=== PATIENT | male | born 1950 | race Caucasian/White ===

== ENCOUNTER 2020-02-12 12:45 | Inpatient (IN) | payer OTHER ==
[2020-02-12] VITALS (10 sets, daily range): BP systolic 132–175; BP diastolic 77–96
[~2020-02-12] VITALS: Ht 185.4 cm; Wt 112.9 kg
[2020-02-12 13:35] LABS: HEMATOCRIT 43.4 % (42.0-52.0); HEMOGLOBIN 14.8 gm/dL (14.0-18.0); MCH 31.2 pg (26.0-34.0); MCHC 34.2 g/dL (28.0-37.0); MCV 91.3 fL (80.0-100.0); RBC 4.76 mil/uL (4.50-6.00); RDW 14.3 % (10.5-14.5); WBC 10.7 thou/uL (4.0-11.0)
[2020-02-12 13:45] LABS: ANION GAP 10 mmol/L (7-16); BUN 20 mg/dL (7-18); CALCIUM 8.7 mg/dL (8.5-10.1); CHLORIDE 105 mmol/L (98-107); CO2 24 mmol/L (21-32); CREATININE 1.1 mg/dL (0.7-1.3); GLUCOSE 148 mg/dL (74-106); POTASSIUM 4.1 mmol/L (3.5-5.1); SODIUM 139 mmol/L (136-145)
[2020-02-12 13:54] LABS: TROPONIN-I <0.06 ng/mL (<0.06)
[2020-02-12 18:26] LABS: INR 1.1; PROTIME 10.8 Seconds (9.3-11.4)
[2020-02-13 06:18] VITALS: BP 163/101
[2020-02-13 06:26] LABS: HEMATOCRIT 42.4 % (42.0-52.0); HEMOGLOBIN 14.6 gm/dL (14.0-18.0); MCH 31.2 pg (26.0-34.0); MCHC 34.4 g/dL (28.0-37.0); MCV 90.6 fL (80.0-100.0); RBC 4.68 mil/uL (4.50-6.00); RDW 14.4 % (10.5-14.5); WBC 8.8 thou/uL (4.0-11.0)
[2020-02-13 06:46] LABS: ANION GAP 9 mmol/L (7-16); BUN 16 mg/dL (7-18); CALCIUM 8.5 mg/dL (8.5-10.1); CHLORIDE 106 mmol/L (98-107); CO2 25 mmol/L (21-32); CREATININE 0.9 mg/dL (0.7-1.3); GLUCOSE 117 mg/dL (74-106); POTASSIUM 4.2 mmol/L (3.5-5.1); SODIUM 140 mmol/L (136-145)
[2020-02-13 06:47] LABS: SERUM ASSESSMENT Clear
[2020-02-13 06:57] LABS: ALBUMIN 3.8 g/dL (3.4-5.0); CHOLESTEROL 130 mg/dL (<200); HDL CHOLESTEROL 21 mg/dL (>40); LDL CHOLESTEROL 41 mg/dL (<100); SGOT 47 U/L (15-37); SGPT 55 U/L (30-65); TC:HDL 6.2 Ratio (Not establshd); TOTAL BILIRUBIN 0.5 mg/dL (0.2-1.0); TOTAL PROTEIN 6.9 g/dL (6.4-8.2); TRIGLYCERIDE 342 mg/dL (<150); VLDL 68 mg/dL (<40)
[2020-02-13] MEDS ORDERED: CLOPIDOGREL75 MG PO (07:36)
[2020-02-13] MEDS ORDERED: METOPROLOL SUCC25 M1 PO (07:37)
[2020-02-13] MEDS ORDERED: ASA81BEC PO (07:38)
[2020-02-13] MEDS ORDERED: PANTOPRAZOLE SO40 M1 PO (07:39)
[2020-02-13] MEDS ORDERED: LORATIDINE 10 M10 M1 PO (07:39)
[2020-02-13] MEDS ORDERED: VITAMIN D-40010 MCG PO (07:42)
[2020-02-13] MEDS ORDERED: MEN'S MULTIVIT1 EACH PO (07:43)
[2020-02-13] MEDS ORDERED: COLACE100 MG PO (07:44)
[2020-02-13] MEDS ORDERED: METAMUCIL660 GM PO (07:44)
[2020-02-13] MEDS ORDERED: FLONASE 0.05%50 MCG NARES (07:45)
[2020-02-13] MEDS ORDERED: DOXAZOSIN MESYLA8 MG PO (07:46)
[2020-02-13] MEDS ORDERED: SIMVASTATIN80 MG PO (07:46)
[2020-02-13] MEDS ORDERED: NAPROSYN500 MG PO (07:47)
[2020-02-13] MEDS ORDERED: NEURONTIN 300M300 M2 PO (07:48)
[2020-02-13] MEDS ORDERED: TRAMADOL 50 MG50 MG PO (07:48)
[2020-02-13 07:57] VITALS: BP 155/100
--- NOTE | 2020-02-13 08:07 | NUR ---
ASSESSMENTS CHARTED, MEDS CHARTED GIVEN. RESTED IN BED DURING SHIFT, DID NOT SLEEP WELL. 1ST DEGREE AND BBB ON TELEMETRY. UP WITH CANE AND ASSIST TO BATHROOM. WENT TO [employer] DURING DAY SHIFT, RIGHT GROIN SITE IS SOFT DRY AND INTACT. RECEIVED TWO STENTS. FALL PRECAUTIONS IN PLACE DURING SHIFT. DENIED PAIN.
--- NOTE | 2020-02-13 11:28 | NUR ---
PT ASSESSED, POC REVIWED AND PT VERBALIZED UNDERSTANDING, UP AD TRACY, ULTRAM GIVEN FOR CHRONIC LOWER BACK/HIP PAIN, VSS, WILL MONITOR
[2020-02-13 11:47] VITALS: BP 151/71
--- NOTE | 2020-02-13 13:39 | NUR ---
CONSULT [id number] WAS COMPLETED BY THIS DELINQUENT ACCOUNT CLERK. PATIENT WAS VISIITED REGARDING AN ADVANCED DIRECIVE. HE DID NOT NEED ONE AT THE TIME BUT HE TOOK THE MATERIALS.
[2020-02-13 15:15] VITALS: BP 155/93
[2020-02-13 21:56] VITALS: BP 134/68
--- NOTE | 2020-02-14 07:37 | NUR ---
PT AMBULATING TO BATHROOM INDEPENDENTLY AND IS TOLERATING WELL. DENIES PAIN. RESTING COMFORTABLY. NO NEEDS VOICED. CALL LIGHT WITHIN REACH. FREQUENT OBSERVATION.
[2020-02-14 07:48] VITALS: BP 147/91
--- NOTE | 2020-02-14 09:48 | 2DMMODE ---
[facility] [place] [address] 2 D/M-MODE ECHOCARDIOGRAM Name: CHOCO STONE Room #: 219-P ADM IN M.R.#: [id number] Admission: 02/12/20 Attend Phys: Jose Lake MD, Discharge: Date of : 52 Report #: [id number] THIS REPORT FOR: cc: FAM - Family physician unknown FAM - Family physician unknown Jose Lake MD [facility] ~ APPROVED REPORT Study performed: 02/13/2020 10:15:51 EXAM: Comprehensive 2D, Doppler, and color-flow Echocardiogram Patient Location: In-Patient Room #: 219 Status: routine BSA: 2.31 HR: 64 bpm BP: 130/74 mmHg Rhythm: NSR Other Information Study Quality: Technically Difficult Risk Factors: Cardiac Risk Factors: HTN Echo Enhancing Agent Indication: Endocardial border delineation Agent(s) / Amount(s) Used: Optison 2 cc 2D Dimensions RVDd: 43.11 mm IVSd: 15.39 (7-11mm) LVOT Diam: 24.78 (18-24mm) LVDd: 48.12 mm PWd: 17.01 (7-11mm) Ascending Ao: 37.21 (22-36mm) Left Atrium: 38.98 (27-40mm) Aortic Root: 29.81 mm Volumes Left Atrial Volume (Systole) Single Plane 4CH: 32.65 mL Single Plane 2CH: 32.42 mL Aortic Valve AoV Peak Sj.: 1.18 m/s AO Peak Gr.: 5.57 mmHg [facility] [address] [place] [address] 2 D/M-MODE ECHOCARDIOGRAM Name: CHOCO STONE [place] Room #: 219-P [facility] IN M.R.#: [id number] Admission: 02/12/20 Attend Phys: Jose Lake, Discharge: Date of : 52 Report #: [id number] Mean Gr.: 2.57 mmHg AO V2 Mean: 0.74 m/s AO V2 VTI: 23.55 cm Mitral Valve E/A Ratio: 1.0 MV Decel. Time: 242.33 ms MV E Max Sj.: 0.65 m/s MV A Sj.: 0.68 m/s MV PHT: 70.28 ms Left Ventricle The left ventricle is normal size. There is normal LV segmental wall motion. Mild concentric left ventricular hypertrophy. The left ventricular systolic function is normal. The left ventricular ejection fraction is within the normal range. LVEF is 50-55% subtle ant apical distal septal hypokinesis Right Ventricle The right ventricle is normal size. There is normal right ventricular wall thickness. The right ventricular systolic function is normal. Atria The left atrium size is normal. The right atrium size is normal. Aortic Valve The aortic valve is normal in structure. No aortic regurgitation is present. There is no aortic valvular stenosis. Mitral Valve The mitral valve is normal in structure. There is no mitral valve regurgitation noted. Tricuspid Valve The tricuspid valve is normal in structure. There is no tricuspid valve regurgitation noted. Pulmonic Valve The pulmonary valve is normal in structure. There is no pulmonic valvular regurgitation. Great Vessels The aortic root is normal in size. IVC is normal in size and collapses >50% with inspiration. [facility] [address] [place] [address] 2 D/M-MODE ECHOCARDIOGRAM Name: CHOCO STONE [place] Room #: 219-P [facility] IN M.R.#: [id number] Admission: 02/12/20 Attend Phys: Jose Lake, Discharge: Date of : 52 Report #: [id number] Pericardium There is no pericardial effusion. <Conclusion> The left ventricle is normal size. Mild concentric left ventricular hypertrophy. LVEF is 50-55% subtle ant apical distal septal hypokinesis The right ventricle is normal size. The aortic valve is normal in structure. There is no mitral valve regurgitation noted. There is no tricuspid valve regurgitation noted. The aortic root is normal in size. There is no pericardial effusion. <ELECTRONICALLY SIGNED> By: Jose Lake MD, [facility] 02/14/20 0947 [id number] Jose Lake MD, FACC /INF
[2020-02-14] MEDS ORDERED: LIPITOR40 MG PO (10:46)
[2020-02-14] MEDS ORDERED: METOPROLOL SUCC25 M1 PO (10:50)
[2020-02-14] MEDS ORDERED: BENICAR40 MG PO (10:50)
[2020-02-14] MEDS ORDERED: EFFIENT10 MG PO (10:50)
[2020-02-14] MEDS ORDERED: ASPIRIN325 PO (11:00)
[2020-02-14 11:01] VITALS: BP 147/91
--- NOTE | 2020-02-14 12:24 | NUR ---
ASSESSMENT CHARTED. PT ALERT AND ORIENTED. VSS. DENIED HAVING PAIN OR DISCOMFORT. SEEN BY DR. RODRIGUEZ. ORDERS GIVEN TO DISCHARGE PT TO HOME. DISCHARGE INSTRUCTIONS GIVEN TO PT. PT VERBERLISED UNDERSTANDING. PT LEFT THE FACILITY ACCOMPANIED BY THE .
--- NOTE | 2020-02-15 07:46 | EKG ---
[facility] [place] [address] ELECTROCARDIOGRAM REPORT Name: CHOCO STONE Room #: 219-P DIS IN M.R.#: [id number] Admission: 02/12/20 Attend Phys: Jose Lake MD, Discharge: 02/14/20 Date of : 52 Report #: [id number] THIS REPORT FOR: cc: FAM - Family physician unknown FAM - Family physician unknown Jah Cardoso MD [facility] THIS REPORT FOR: //name// [facility] Test Date: 2020-02-13 Test Time: 07:40:31 Pat Name: CHOCO STONE Department: Room: 219 P Gender: M Oim Architect: Vel SEVILLA : 1950 Requested By: Jose Lake Order Number: [id number] MD: Jah Cardoso Measurements Intervals Gorman Rate: 59 P: 39 MO: 222 QRS: -38 QRSD: 109 T: 8 QT: 432 QTc: 428 Interpretive Statements Sinus rhythm Nonspecific T wave abnormality No previous ECG available for comparison Electronically Signed On 02-15-2020 7:46:30 CDT by Jah Cardoso [email or web address] <ELECTRONICALLY SIGNED> By: Jah Cardoso MD, [facility] 02/15/20 0746 9 Jah Cardoso MD, [facility] /EPI
--- NOTE | 2020-02-17 15:02 | D ---
[facility] [place] [address] DISCHARGE SUMMARY Name: CHOCO STONE Room #: 219-P [facility] IN M.R.#: [id number] Admission: 02/12/20 Attend Phys: Jose Lake MD, Discharge: 02/14/20 Date of : 52 Report #: [id number] THIS REPORT FOR: cc: KIKI - Family physician unknown KIKI - Family physician unknown Jose Lake MD [facility] THIS REPORT FOR: //name// CC: KIKI unknown Jose Lake [facility] COURSE: The patient is a 69-year-old male who was life-flighted here from [place], [place] having onset of acute chest pain and pressure, consistent with his prior infarct pain. He was taken emergently to the catheterization lab, which revealed a totaled LAD proximal to a previously placed stent and that stent had been placed in 2006. I was able to successfully dilate and stent this with some telescoping of the new stent into the prior stent. This was a 3.0 x 12 mm Alden Resolute stent, post-dilated 3.2 mm. JULIANN grade 3 flow. I also successfully dilated and stented the diagonal branch with a 2.25 x 18. This was a subtotal diagonal with a moderate amount of distribution. There is a high-grade distal circumflex, but there is minimal distribution to that. We will treat that medically. He had some stunning of the anterior wall, but on echo this morning or echo from yesterday has improvement in the anterior septal wall and apex, EF in the 50% range. He is up and ambulating and feels well. No recurrent chest pain or pressure. We will discharge on olmesartan 40 mg, aspirin, prasugrel 10 mg a day, so dual antiplatelet therapy. We will back down to a baby aspirin after a month. Metoprolol 25, atorvastatin 40. No lifting for 48 hours. No lying in tub, Jacuzzi or black for a week. Low-fat, low-sodium, low-cholesterol diet. No MRI or dental work for 3 months. DISCHARGE DIAGNOSES: 1. Acute anterior wall myocardial infarction with successful percutaneous transluminal coronary angioplasty stent of an occluded proximal left anterior descending. 2. Also, successful stent of a high grade diagonal branch. 3. Mild ischemic cardiomyopathy with improvement in the anterior apex. EF near normal. 4. Hypertension. 5. Hypercholesterolemia. 6. History of hypertriglyceridemia. Followup will be arranged 1 month in our office. We would recommend outpatient cardiac rehabilitation. We will arrange. <ELECTRONICALLY SIGNED> By: Jose Lake MD, FACC 02/17/20 1502 1041 1057 Jose Lake MD, FACC /nt
== END 2020-02-14 12:27 | disposition home or self-care (01) | DRG 247 ==
LOC: ER 12:45 → 2N 14:47
PROVIDERS: ADMIT Internal Medicine Cardiovascular Disease; ATTEND Internal Medicine Cardiovascular Disease
PROC: 027135Z Dilation of Coronary Artery, Two Arteries with Two Drug-eluting Intraluminal Devices, Percutaneous Approach (ICD-10-PCS; principal; 2020-02-12)
PROC: B215YZZ Fluoroscopy of Left Heart using Other Contrast (ICD-10-PCS; principal; 2020-02-12)
PROC: B211YZZ Fluoroscopy of Multiple Coronary Arteries using Other Contrast (ICD-10-PCS; principal; 2020-02-12)
PROC: 4A023N7 Measurement of Cardiac Sampling and Pressure, Left Heart, Percutaneous Approach (ICD-10-PCS; principal; 2020-02-12)
DX: I21.09 ST elevation (STEMI) myocardial infarction involving other coronary artery of anterior wall (principal); I25.10 Atherosclerotic heart disease of native coronary artery without angina pectoris; I10 Essential (primary) hypertension; E78.5 Hyperlipidemia, unspecified; K21.9 Gastro-esophageal reflux disease without esophagitis; G89.29 Other chronic pain; I25.5 Ischemic cardiomyopathy; E78.00 Pure hypercholesterolemia, unspecified; Z95.5 Presence of coronary angioplasty implant and graft; Z71.6 Tobacco abuse counseling; Z72.0 Tobacco use
CPT/HCPCS: 10797

== ENCOUNTER → 2020-04-18 | Outpatient (CLI) | payer OTHER ==
[~2020-04-18] MED LIST: ASA81BEC PO; ASPIRIN325 PO; BENICAR40 MG PO; CLOPIDOGREL75 MG PO; COLACE100 MG PO; DOXAZOSIN MESYLA8 MG PO; EFFIENT10 MG PO; FLONASE 0.05%50 MCG NARES; LIPITOR40 MG PO; LORATIDINE 10 M10 M1 PO; MEN'S MULTIVIT1 EACH PO; METAMUCIL660 GM PO; METOPROLOL SUCC25 M1 PO; NAPROSYN500 MG PO; NEURONTIN 300M300 M2 PO; PANTOPRAZOLE SO40 M1 PO; SIMVASTATIN80 MG PO; TRAMADOL 50 MG50 MG PO; VITAMIN D-40010 MCG PO
== END ==
LOC: SJCVCIMAG 12:09 → SJCVC 12:09
PROVIDERS: ATTEND Internal Medicine Cardiovascular Disease
DX: I65.23 Occlusion and stenosis of bilateral carotid arteries (principal); I44.4 Left anterior fascicular block; R94.31 Abnormal electrocardiogram [ECG] [EKG]; I25.10 Atherosclerotic heart disease of native coronary artery without angina pectoris; E78.00 Pure hypercholesterolemia, unspecified; I10 Essential (primary) hypertension; I25.2 Old myocardial infarction; G89.29 Other chronic pain; K21.9 Gastro-esophageal reflux disease without esophagitis; Z79.899 Other long term (current) drug therapy

== ENCOUNTER → 2021-01-20 | Outpatient (CLI) | payer OTHER | LOC: SJCVCIMAG 10-13 07:30 | PROVIDERS: ATTEND Internal Medicine Cardiovascular Disease | DX: I49.3 Ventricular premature depolarization (principal); I65.21 Occlusion and stenosis of right carotid artery; K21.9 Gastro-esophageal reflux disease without esophagitis; G89.29 Other chronic pain; I25.10 Atherosclerotic heart disease of native coronary artery without angina pectoris; Z79.82 Long term (current) use of aspirin; Z79.899 Other long term (current) drug therapy; Z98.61 Coronary angioplasty status ==